=== PATIENT | male | born 1950 | race Caucasian/White ===

== ENCOUNTER → 2022-02-03 09:56 | Outpatient (CLI) | payer MEDICARE, SELFPAY ==
--- NOTE | ~2022-02-03 | MR_ITS ---
EXAMINATION: MR knee LT wo con DATE: 02/03/2022 10:43 INDICATION: Chronic anteromedial left knee pain TECHNIQUE: Magnetic resonance imaging (MRI) of the left knee was performed without intravenous contra st. Sequences included coronal PD-weighted FSE, coronal PD-weighted FS FSE, sagittal T2-weighted FSE , sagittal PD-weighted FS FSE and axial PD weighted fat saturated FSE. COMPARISON: None. FINDINGS: Medial compartment: Medial meniscus is normal. Articular cartilage is normal. Lateral compartment: Lateral meniscus is normal. Articular cartilage is normal. Patellofemoral compartment: Articular cartilage is normal. Ligaments and tendons: Anterior and posterior cruciate ligaments are normal. The medial collateral ligament and fibular matteo ateral ligament complex are normal. Patellar tendon is normal. Minimal distal quadriceps tendinopathy without tear. The visualized medial and lateral hamstring tendons as well as the iliotibial band are normal. Fluid: Physiologic amount of fluid in the joint space. No loose osteochondral bodies identified. Osseous/other: Normal marrow signal. No fracture or pathologic marrow replacing process. The marker indicating the s ite of maximal pain is positioned over the tibial insertion of the pes anserinus which appears normal with no associated bursitis. IMPRESSION: 1. Minimal distal quadriceps tendinopathy without tear. 2. No internal derangement with normal menisci, cartilage and stabilizing ligaments of the knee. Reviewed, dictated and finalized at location [facility] IMPRESSION: 1. Minimal distal quadriceps tendinopathy without tear. 2. No internal derangement with normal menisci, cartilage and stabilizing ligam ents of the knee.
== END ==
PROVIDERS: PCP Orthopaedic Surgery; Visit Provider Orthopaedic Surgery
DX: M25.562 Pain in left knee (principal); G89.29 Other chronic pain; R93.6 Abnormal findings on diagnostic imaging of limbs
CPT/HCPCS: 73721